=== PATIENT | female | born 1975 | race Caucasian/White ===

== ENCOUNTER 2024-02-19 21:39 | Emergency (ER) | payer OTHER, SELFPAY ==
[2024-02-19 21:40] VITALS: BP 220/130
[2024-02-19 21:56] LABS: % Basophils 0.6 % (0-2); % Eosinophils 1.5 % (0-6); % Immature Granulocytes 0.3 % (0-0.5); % Lymphocytes 34.7 % (20.5-51.1); % Monocytes 6.8 % (1.7-9.3); % Neutrophils 56.1 % (42.2-75.2); Absolute Eosinophils 0.1 10^3/uL (0-0.7); Absolute Lymphocytes 2.3 10^3/uL (1.2-3.4); Absolute Monocytes 0.5 10^3/uL (0.1-0.6); Absolute Neutrophils 3.7 10^3/uL (1.4-6.5); Hemoglobin 15.2 g/dL (12.0-16.0); Mean Corp Hgb Conc. 35.3 g/dL (33.0-37.0); Mean Corpuscular Volume 84.8 fL (81.0-99.0); Mean Platelet Volume 10.7 fL (7.4-10.4); Nucleated Red Blood Cells % 0 %; Platelet Count 286 10^3/uL (130-400); Red Blood Cell Count 5.07 10^6/uL (4.20-5.40); Red Cell Dist. Width 12.3 % (11.5-14.5); White Blood Cell Count 6.6 10^3/uL (4.8-10.8)
[2024-02-19 22:18] LABS: ALT (SGPT) 22 U/L (0-35); AST (SGOT) 29 U/L (14-36); Albumin 4.7 g/dl (3.5-5.0); Alkaline Phosphatase 102 U/L (38-126); Blood Urea Nitrogen 18 mg/dl (7-17); Calcium 9.8 mg/dl (8.4-10.2); Carbon Dioxide 28 mmol/L (22-30); Chloride 103 mmol/L (98-107); Glucose 114 mg/dl (70-99); Potassium 4.3 mmol/L (3.5-5.1); Sodium 139 mmol/L (135-145); Total Bilirubin 0.5 mg/dl (0.2-1.3); Total Protein 7.7 g/dl (6.3-8.2); eGFR > 60.00
[2024-02-19 22:21] VITALS: BMI 28.2
[2024-02-19 22:25] VITALS: BP 196/112
[2024-02-19 23:00] VITALS: BP 197/116
[2024-02-19] MEDS: FLEXERIL 10 MG PO (23:27)
[2024-02-19] MEDS: DIOVAN 80 MG PO (23:27)
[2024-02-19] MEDS: TORADOL 60 MG IM (23:28)
[2024-02-20] VITALS: BP 181/107
--- NOTE | 2024-02-20 00:05 | ED.GENMED ---
History of Present Illness
General
Chief Complaint: Blood Pressure Problem
Source: patient, spouse and other (External medical summary report reviewed. Outpatient visit with colorectal surgery August 2018 for treatment of thrombosed external hemorrhoids. Noted to be hypertensive 159/101)
Exam Limitations: none
Time Seen by Provider: 02/19/24 22:58
Nursing documentation reviewed up to this point in time: agreed with
History of Present Illness
History of Present Illness:
This is a 48-year-old [id number] woman who has longstanding history of hypertension. Follows with her primary care physician and has been trialed on various different antihypertensive medications and reports various side effects causing
her to discontinue antihypertensive. She reports lower extremity edema from amlodipine. More recently she discontinued atenolol December of this year due to concern for increase in menopausal symptoms.
While taking atenolol however she states her blood pressure was better controlled generally 140s over 90s.
She complains of 1 week history of left posterior neck, left posterior shoulder pain that has been persistent. She denies insightful injury but does admit to heavy lifting at work on a daily basis. She denies headache, denies chest pain or
palpitations, denies radiation of pain down her arm, denies weakness nor numbness. She has trialed sporadic doses of NSAIDs throughout the week without significant improvement.
She did undergo chiropractic treatment this morning with moderate but only temporary relief of pain.
She presented to urgent care for further evaluation and was noted to be significantly hypertensive thus sent to the ED for further evaluation.
Currently taking no medicines on a daily basis.
Past History
Past History
ED Past Medical History: HTN
ED Past Surgical History: Gynecological (Hysterectomy)
Social History
Tobacco: Non-smoker
Alcohol: None
Drug: None
Personal:
Living: with family
Employment: Employed
Family History
Family History: Other (Noncontributory)
Phy Exam
Physical Exam
Physical Exam:
GENERAL: 48-year-old woman appears her stated age, awake and alert, pleasant, appears in no acute distress. Afebrile. Significantly hypertensive with initial blood pressure 220/130, improving to 197/110
EYE: pupils equal and reactive. anicteric
NECK: Supple, no midline bony tenderness. Moderate tenderness left paraspinal region as well as moderate tenderness accompanied with moderate muscle spasm left superior trapezius musculature. There is mildly restricted head rotation to the left.
No meningismus, no significant adenopathy.
ENT: oral mucosa is moist. No rhinorrhea.
CARDIAC: Regular rate and rhythm. no murmur.
LUNGS: Clear breath sounds bilaterally, no acute respiratory distress, no wheezes/rales/rhonchi
ABDOMEN: Soft, nondistended, without focal tenderness
NEUROLOGICAL: Alert and oriented x3, no focal neuro deficits. Motor strength is 5/5 bilaterally. Gross sensation is intact. Gait is marsh and steady.
SKIN: Warm and dry, normal color, skin intact. No rash.
MUSCULOSKELETAL: No C/C/E. peripheral pulses are full and equal b/l. No palpable tenderness. Full shoulder range of motion with increased pain with abduction greater than 90 degrees against resistance.
PSYCH: Normal and appropriate interaction.
Course
Orders/Labs/Results
Orders:
Orders
02/19/24 21:44
Electrocardiogram (*1) Urgent
Reason for Study: Hypertension, Benign
EKG- Treatment ONCE
02/19/24 21:51
CMP [Comprehensive Metabolic Panel] Urgent
Complete Blood Count/With Diff Urgent
02/19/24 23:13
Cyclobenzaprine HCl [Flexeril] 10 mg PO NOW STA
Ketorolac [Toradol] 60 mg IM NOW STA
Valsartan [Diovan] 80 mg PO NOW STA
Abnormal Lab Results
02/19/24
21:51
MPV 10.7 H fL
(7.4-10.4)
BUN 18 H mg/dl
(7-17)
Glucose 114 H mg/dl
(70-99)
02/19/24 21:51
02/19/24 21:51
Vital Signs
Initial and Last Documented VS:
Initial Vital Signs
Temp Pulse Resp BP Pulse Ox
98.0 F 98 24 220/130 98
02/19/24 21:40 02/19/24 21:40 02/19/24 21:40 02/19/24 21:40 02/19/24 21:40
Last Documented Vital Signs
Temp Pulse Resp BP Pulse Ox
98.0 F 83 15 181/107 97
02/19/24 21:40 02/20/24 00:15 02/20/24 00:15 02/20/24 00:00 02/20/24 00:15
MDM/Problems Addressed
Differential Diagnosis Includes:
Longstanding history of accelerated hypertension with reported various side effects to antihypertensives. Currently on no medical management.
Presents with 1 week history of left posterior neck to left posterior shoulder discomfort and exam is most consistent with musculoskeletal pain/superior trapezius myofasciitis.
There is no radicular signs or symptoms. No neurologic symptoms.
No accompanying chest discomfort nor shortness of breath.
EKG is unremarkable as is laboratory studies. No evidence of end organ damage.
I suspect I suspect current musculoskeletal pain is an aggravating factor for underlying poorly controlled hypertension.
Will give an IM dose of Toradol and an oral dose of Flexeril for musculoskeletal pain.
No indication for radiologic studies.
Lengthy discussion with patient that we must initiate an antihypertensive medication. She does not believe she has ever been trialed on an ONIEL or an ARB and thus recommend initiation of valsartan.
Will give an oral dose of valsartan now, 80 mg.
As patient performs heavy lifting on a daily basis at work, concern for further aggravation of left trapezius musculoskeletal pain/strain thus recommend she remain out of work for this week. A note will be provided.
Encouraged prompt follow-up with PCP this week for recheck.
Return precautions discussed.
Chronic conditions affecting care: HTN
Acute Exacerbation and/or Progression of Chronic Illness: HTN
*Pulse Oximetry
Patient hypoxic: no
*EKG
Interpreted by ED Provider?: Yes
Interpretation: normal
Comparison EKG: no comparison EKG present
Rate: normal
Rhythm: sinus
[place]: normal axis
Interval: normal interval
QRS Pattern: normal QRS
Ischemia: no ischemia
*[employer] Interpretation
Rate: normal
Interpretation: normal
Rhythm: sinus
*Critical Care Note
Total Time (30-74mins, 75-104mins- exclusive of procedures): Not Applicable
Update Note
Update Note:
02/20/2024 0110 AM
Patient feeling markedly improved, resting comfortably with marked improvement in left posterior neck, left posterior shoulder pain.
Blood pressure has improved to 160/90.
Will discharge with plans as above.
ED Attending Note
-
Portions of this chart may have been created with voice recognition software.� Occasional wrong word or��sound alike� substitutions may have occurred due to the inherent limitations of voice recognition software.
Discharge Plan
Departure
Patient Disposition: Home (Routine Discharge)
Date of Disposition: 02/20/24
Time of Disposition: 01:11
Patient with high blood pressure during this ER visit?: No
Condition: Good
Discharge Problem:
Strain of cervical portion of left trapezius muscle, Accelerated essential hypertension
Instructions: High blood pressure in adults, Muscle Strain (DC), Neck Pain Exercises
Prescriptions:
New
cyclobenzaprine 10 mg tablet
10 mg PO TIDPRN PRN (Reason: muscle spasm) Qty: 20 0RF
ibuprofen 800 mg tablet
800 mg PO TIDPRN PRN (Reason: pain, fever) Qty: 30 0RF
valsartan 80 mg tablet
80 mg PO DAILY Qty: 30 0RF
Referrals:
Ciera Bernstein MD [Family Provider] - Follow up in 2-3 days
Stand Alone Forms: Return to Work
Interventions
Interventions:
*Risk Screen - Suicide Last Done: 02/19/24 21:40
*General Assessment Last Done: 02/19/24 22:21
*Neglect/Abuse Screening Last Done: 02/19/24 21:40
ED- Fall Risk Assessment Last Done: 02/19/24 22:21
*ED COVID-19 Vaccine History Last Done: 02/19/24 22:21
ED- Cardiac Assessment Last Done: 02/19/24 22:21
ED-Musculoskeletal Assessment Last Done: 02/19/24 22:21
ED- Neurological Assessment Last Done: 02/19/24 22:21
ED- Pulmonary Assessment Last Done: 02/19/24 22:21
Discharge Date and Time
Print Language: MOHAWK
[2024-02-20 01:00] VITALS: BP 160/90
== END 2024-02-20 01:23 | disposition home or self-care (01) ==
LOC: EMR 21:39
PROVIDERS: Emergency Medicine; EMERGENCY PHYSICIAN Emergency Medicine; FAMILY PHYSICIAN Internal Medicine
DX: S29.012A Strain of muscle and tendon of back wall of thorax, initial encounter (principal); S16.1XXA Strain of muscle, fascia and tendon at neck level, initial encounter; R60.0 Localized edema; X58.XXXA Exposure to other specified factors, initial encounter; I10 Essential (primary) hypertension; Z86.16 Personal history of COVID-19; Z91.048 Other nonmedicinal substance allergy status
CPT/HCPCS: 99284; 96372; 80053; 85025; 93005

== ENCOUNTER 2024-03-02 | Emergency (ER) | payer OTHER, SELFPAY ==
[2024-03-02] VITALS (9 sets, daily range): BP systolic 145–191; BP diastolic 87–131; BMI 29.0
--- NOTE | 2024-03-02 00:36 | ED.GENMED ---
Addendum entered and electronically signed by Marcus Monte MD 03/02/24 08:31:
Patient called the ER complaining of nausea and wondering if it was the pain medication. She did receive Dilaudid late last evening. Nausea is almost gone at this time. No other significant new symptoms. No neurologic symptoms. No chest pain.
Patient was of course offered/recommended to come back for reevaluation although chronologically the nausea started after the Dilaudid even when she was in the hospital. Stressed to her to return immediately with any recurring nausea as this should
not recur at this point with the Dilaudid or she develops any other symptoms including chest pain unusual severe headache visual issues neurologic issues etc.
Original Note:
History of Present Illness
General
Chief Complaint: Blood Pressure Problem
Source: patient
Exam Limitations: none
Time Seen by Provider: 03/02/24 00:21
History of Present Illness
History of Present Illness:
This is a 48 year old female that comes in with c/o hypertension and left upper chest arm pain. States that on February 11 she started with pain in her neck/shoulder. For a week the pain continued to get worse. On the she came here and was told
that she had a trapezius muscle pull and her BP was elevated at that time. States that she was started on Valsartan 80mg daily. States that before coming here she had also gone for a Massage. States that she has been doing the stretches she was
given. Today she had Acupuncture and the pain is 20 times worse then what it was. States that she has pain in the left upper chest/shoulder area and down her arm. States that her BP is very high to she called her PCP and was told to come to the ER.
States that she also felt SOB today slightly. Denies any fever, chills, abd pain, nausea, vomiting, diarrhea, headache, dizziness, urinary burning.
Past History
Past History
ED Past Medical History: HTN; Negative Asthma, Hypercholesterolemia or NIDDM
ED Past Surgical History: Gynecological (Hysterectomy Partial, Tubal)
Social History
Tobacco: Former smoker
Alcohol: None
Drug: None
Personal:
Living: with family
Employment: Employed
Family History
Family History: Other (Noncontributory)
Review of Systems
Review of Systems
All Other Systems: ROS reviewed and negative except as documented in HPI and ROS
Constitutional: Reports no symptoms; Denies fever or chills
EENT: Reports no symptoms
Respiratory: Reports trouble breathing (Slight); Denies cough
Cardiac: Reports chest pain
ABD/GI: Reports no symptoms; Denies abdominal pain, nausea, vomiting or diarrhea
: Reports no symptoms; Denies dysuria, frequency or urgency
Musculoskeletal: Reports no symptoms
Skin: Reports no symptoms
Neurological: Reports no symptoms; Denies dizzy or headache
Psychiatric: Reports no symptoms
Phy Exam
General Physical Exam
General Presentation: mild distress
General age: appears stated age
General Skin: warm and dry
General Habitus: normal
General Mental: alert
General Hydration: appears well hydrated
ENT Exam
ENT Exam: TM's normal, pharynx normal and neck supple
Eye Exam
Eye Exam: EOMI
Cardiovascular Exam
Cardiovascular Exam: regular rate/rhythm, no edema, no murmur and normal peripheral pulses
Pulmonary Exam
Pulmonary Exam: lungs clear, no respiratory distress, no rales, chest non tender, no crackles, no rhonchi, no wheezing and no cough
Gastrointestinal Exam
Gastrointestinal Exam: normal bowel sounds, non tender, soft, no organomegaly, no pulsatile mass and non distended
Musculoskeletal Exam
Musculoskeletal Exam: full ROM, no edema and other (Left shoulder anterior tenderness with palpation. Discomfort with crossing over. Negative for discomfort with abduction. )
Skin Exam
Skin Exam: normal color, warm/dry, no rash and no petechia
Psychiatric Exam
Psychiatric Exam: normal mood/affect
Course
Orders/Labs/Results
Orders:
Orders
03/02/24 00:19
Electrocardiogram (*1) Urgent
Reason for Study: Chest Pain
Other Reason for Exam: hypertension
03/02/24 00:20
EKG- Treatment ONCE
03/02/24 00:35
HydrALAZINE [Apresoline] 5 mg IV NOW STA
03/02/24 00:49
Complete Blood Count/With Diff Urgent
Comprehensive Metabolic Panel Urgent
Troponin I Urgent
03/02/24 01:25
EKG- Treatment ONCE
03/02/24 01:28
HydrALAZINE [Apresoline] 10 mg IV NOW STA
03/02/24 01:36
CT Chest Angio W/wo Iv Contras Urgent
Comment: r/o dissection.
Reason For Exam: Upper chest pain, Hypertension.
03/02/24 01:47
HYDROmorphone [Dilaudid] 0.5 mg IV NOW STA
03/02/24 03:03
Sling Left-Treatment ONCE
03/02/24 03:10
HydrALAZINE [Apresoline] 10 mg PO NOW STA
03/02/24 03:50
Electrocardiogram (*1) Urgent
Reason for Study: Chest Pain
Other Reason for Exam: Repeat with Troponin
Troponin I Urgent
Abnormal Lab Results
03/02/24
00:49
MPV 10.6 H fL
(7.4-10.4)
Glucose 127 H mg/dl
(70-99)
03/02/24 00:49
03/02/24 00:49
Glucose nonfasting. Troponin 0.017
Vital Signs
Initial and Last Documented VS:
Initial Vital Signs
Temp Pulse Resp BP Pulse Ox
97.6 F 104 16 186/131 100
03/02/24 00:16 03/02/24 00:16 03/02/24 00:16 03/02/24 00:16 03/02/24 00:16
Last Documented Vital Signs
Temp Pulse Resp BP Pulse Ox
97.6 F 107 15 149/96 96
03/02/24 00:16 03/02/24 03:00 03/02/24 03:00 03/02/24 03:00 03/02/24 03:00
MDM/Problems Addressed
Differential Diagnosis Includes:
Hypertensive Crisis, Shoulder pain, Thoracic outlet syndrome.
MDM/Problems Addressed:
This is a 48 year old female that comes in with c/o Hypertension and left upper shoulder and arm pain. States that she was seen here on the and started on Valsartan 80mg daily. Today she had acupuncture and the pain is 20 times worse in the left
shoulder and now goes down the left arm.
Will check labs. ECG and medicate for hypertension.
Patient BP remains at 182/102. Will given Second Dose of Hydralazine.
BP down to 166/92 after second dose of Hydralazine. . Will medicate for shoulder pain. CT is pending.
Back into see patient. Patient BP down to 153/87. CT of the chest is normal. Second Troponin is pending. Explained to patient that she will be given a prescription for Hydralazine to take at home along with her Valsartan. Will also give patient a
sling and Narcotic pain medication for her left shoulder pain. Patient to follow up with the internal corrosion specialist for further evaluation. Patient to return with any concerns.
Chronic conditions affecting care: HTN
Acute Exacerbation and/or Progression of Chronic Illness: HTN
*Radiology
Radiology exam reviewed: radiology read reviewed (CTA chest night hawk- No acute findings. NO appreciable acute thoracic aortic pathoogy on this non ECG gated exam. (assessment of the ascending aorta and aortic root limited by motion/cardiac
pulsation artifact). No appreciable pulmonary embolus to the larger segmental pulmonary arterial level. ) and all reviewed NAD by ED Provider (CT cont- Normal size heart. Pericardium appears within normal limites. No evidence for pneumonia or
pulmonary edema. Mild bilateral dependent atelectasis. No pleural effusion or pneumothorax. No acute abnormality in the visualized upper abdomen. )
*Pulse Oximetry
Patient hypoxic: no
*EKG
Interpreted by ED Provider?: Yes
Heart Rate: 88
Rate: normal
Rhythm: sinus
[place]: normal axis
Interval: normal interval
QRS Pattern: normal QRS
Ischemia: no ischemia
*[employer] Interpretation
Rate: normal
Heart Rate: 98
Rhythm: sinus
*Critical Care Note
Total Time (30-74mins, 75-104mins- exclusive of procedures): Not Applicable
ED Attending Note
-
Portions of this chart may have been created with voice recognition software.� Occasional wrong word or��sound alike� substitutions may have occurred due to the inherent limitations of voice recognition software.
Discharge Plan
Departure
Patient Disposition: Home (Routine Discharge)
Date of Disposition: 03/02/24
Time of Disposition: 03:17
Patient with high blood pressure during this ER visit?: Yes
Condition: Good
Covid-19: Not Applicable
Discharge Problem:
Acute pain of left shoulder, Hypertension
Instructions: High Blood Pressure (DC), How to Use a Shoulder Sling, Shoulder Pain ED, BLOOD PRESSURE, Narcotic Pain Medication
Prescriptions:
New
oxycodone 5 mg tablet
5 mg PO Q6H PRN (Reason: Pain) Qty: 15 0RF
hydralazine 10 mg tablet
10 mg PO QID Qty: 120 0RF
No Action
cyclobenzaprine 10 mg tablet
10 mg PO TIDPRN PRN (Reason: muscle spasm) Qty: 20 0RF
ibuprofen 800 mg tablet
800 mg PO TIDPRN PRN (Reason: pain, fever) Qty: 30 0RF
valsartan 80 mg tablet
80 mg PO DAILY Qty: 30 0RF
meloxicam
1 tab PO PRN PRN (Reason: pain)
Referrals:
Octavio Thrasher MD [Active] - Follow up in 2-3 days
UNKNOWN,NO INTERVIEW [Unknown Provider] -
Stand Alone Forms: Return to Work
Activity Restrictions/Additional Instructions:
As discussed, your blood work is normal along with your CT scan. You have been given a sling for the last arm. Please wear this when you are up moving around and remove when you go to bed and rest arm on a pillow. You may use ice to the shoulder to
help with pain. Please use Tylenol 1000mg every 6 hours for pain and a narcotic pain medication as been sent to your pharmacy. Please no driving or alcohol when taking. Please stay away from Ibuprofen, Aleve or Advil as they will raise your blood
pressure. You have also had a prescription for Hydralazine sent to your Pharmacy to help control your Blood pressure. Please take this four times daily as directed along with your Valsartan in the morning. Follow up with the family doctor in the
next 2-3 days for recheck. PLEASE MONITOR YOUR BLOOD PRESSURE AT HOME. SIT IN A CHAIR FOR 5 MIN WITH FEET FLAT ON THE FLOOR AND ARM LEVEL WITH THE HEART BEFORE TAKING OUR BLOOD PRESSURE. IF YOUR BLOOD PRESSURE ELEVATED, YOU HAVE ANY CHEST PAIN, OR
YOU HAVE ANY OTHER CONCERNS PLEASE RETURN TO THE EMERGENCY ROOM.
Interventions
Interventions:
*Risk Screen - Suicide Last Done: 03/02/24 00:16
*General Assessment Last Done: 03/02/24 01:13
*Neglect/Abuse Screening Last Done: 03/02/24 00:16
ED- Fall Risk Assessment Last Done: 03/02/24 01:15
*ED COVID-19 Vaccine History Last Done: 03/02/24 01:13
ED- Cardiac Assessment Last Done: 03/02/24 00:59
ED- Neurological Assessment Last Done: 03/02/24 01:00
ED- Pulmonary Assessment Last Done: 03/02/24 01:01
Discharge Date and Time
Print Language: UPPER SORBIAN
[2024-03-02 00:56] LABS: % Basophils 0.5 % (0-2); % Eosinophils 1.3 % (0-6); % Immature Granulocytes 0.2 % (0-0.5); % Lymphocytes 29.8 % (20.5-51.1); % Monocytes 8.4 % (1.7-9.3); % Neutrophils 59.8 % (42.2-75.2); Absolute Eosinophils 0.1 10^3/uL (0-0.7); Absolute Lymphocytes 1.8 10^3/uL (1.2-3.4); Absolute Monocytes 0.5 10^3/uL (0.1-0.6); Absolute Neutrophils 3.6 10^3/uL (1.4-6.5); Hematocrit 42.6 % (37.0-47.0); Hemoglobin 15.3 g/dL (12.0-16.0); Mean Corp Hgb Conc. 35.9 g/dL (33.0-37.0); Mean Corpuscular Hgb 29.7 pg (27.0-31.0); Mean Corpuscular Volume 82.7 fL (81.0-99.0); Mean Platelet Volume 10.6 fL (7.4-10.4); Nucleated Red Blood Cells % 0 %; Platelet Count 263 10^3/uL (130-400); Red Blood Cell Count 5.15 10^6/uL (4.20-5.40); Red Cell Dist. Width 11.9 % (11.5-14.5)
[2024-03-02] MEDS: APRESOLINE 5 MG IV (01:08)
[2024-03-02 01:10] LABS: ALT (SGPT) 34 U/L (0-35); AST (SGOT) 29 U/L (14-36); Albumin 4.8 g/dl (3.5-5.0); Alkaline Phosphatase 103 U/L (38-126); Blood Urea Nitrogen 13 mg/dl (7-17); Calcium 9.6 mg/dl (8.4-10.2); Carbon Dioxide 25 mmol/L (22-30); Chloride 104 mmol/L (98-107); Glucose 127 mg/dl (70-99); Sodium 137 mmol/L (135-145); Total Bilirubin 0.8 mg/dl (0.2-1.3); Total Protein 7.9 g/dl (6.3-8.2); eGFR > 60.00
[2024-03-02 01:23] LABS: Troponin I 0.017 ng/ml
[2024-03-02] MEDS: APRESOLINE 10 MG IV (01:33)
[2024-03-02] MEDS: DILAUDID 0.5 MG IV (01:51)
[2024-03-02] MEDS: APRESOLINE 10 MG PO (03:40)
[2024-03-02 04:18] LABS: Troponin I < 0.012 ng/ml
== END 2024-03-02 04:30 | disposition home or self-care (01) ==
LOC: EMR
PROVIDERS: Clinical Nurse Specialist Family Health; EMERGENCY PHYSICIAN Emergency Medicine; FAMILY PHYSICIAN Internal Medicine
DX: M25.512 Pain in left shoulder (principal); R11.0 Nausea; R07.89 Other chest pain; M54.2 Cervicalgia; R06.02 Shortness of breath; I10 Essential (primary) hypertension; Z91.048 Other nonmedicinal substance allergy status
CPT/HCPCS: 99285; 96374; 96375; 71275; 80053; 84484; 85025; 93005; Q9967